=== PATIENT | female | born 1995 | race American Indian/Alaskan Native ===

== ENCOUNTER 2017-02-19 05:54 | Emergency (ER) | payer SELFPAY ==
[2017-02-19] MEDS ORDERED: NACL 0.9% 500 ML 500 ML IV ONE (06:24)
[2017-02-19] MEDS ORDERED: ZOFRAN IV ONE (06:24)
[2017-02-19] MEDS ORDERED: KETALAR IV ONE ×3 (06:24→07:05)
--- NOTE | 2017-02-19 06:25 | Emergency Department Report ---
Upper Extremity - HPI Chief Complaint: Extremity Injury, Upper Stated Complaint: LEFT SHOULDER DISLOCATION Time Seen by Provider: 02/19/17 06:09 Upper Extremity: Left Shoulder Occurred When: Today Mechanism: Other Severity: severe Symptoms: Yes Pain with Movement, Yes Deformity, Yes Limited Range of Movement, Yes Numbness, No Weakness, No Swelling, No Bruising/Ecchymosis, No Laceration or Abrasion Other History: This is a 21-year-old female. She is previously unknown to me. She is right-hand dominant. She reports a past history of multiple shoulder dislocations. She is brought to the hospital today by EMS for spontaneous left- sided shoulder dislocation. The patient reports that she went to sleep feeling normally, reports that she woke up, and the shoulder was dislocated. She has sharp pain, which increases with palpation and range of motion. It decreases with rest. She has no weakness. She describes nonspecific numbness to the left hand and forearm. ED Review of Systems ROS: Stated complaint: LEFT SHOULDER DISLOCATION Other details as noted in HPI Constitutional: denies: fever Eyes: denies: vision change ENT: denies: epistaxis Respiratory: denies: cough Cardiovascular: denies: chest pain Gastrointestinal: denies: abdominal pain Genitourinary: as per HPI Musculoskeletal: arthralgia, myalgia Skin: denies: lesions Neurological: denies: weakness Psychiatric: as per HPI ED Past Medical Hx - Past Medical History Previous Medical History?: No - Surgical History Past Surgical History?: No - Social History Smoking Status: Current Every Day Smoker Substance Use Type: None - Medications Home Medications: Home Medications Medication Instructions Recorded Confirmed Last Taken Type Ibuprofen [Motrin] 600 mg PO Q8H PRN #30 tablet 02/19/17 Unknown Rx Upper Extremity Exam - Exam General: Vital signs noted. No distress. Alert and acting appropriately. Head and Torso: No HEENT Abnormality, No Neck Tenderness, No Chest/Lungs Abnormality, No Abdominal Tenderness, No Back Tenderness Shoulder Exam: Yes Shoulder Tenderness, Yes Shoulder Deformity, No Clavicle Tenderness, No Normal Range of Motion in Shoulder, No AC Joint Tenderness Arm Exam: No Arm/Humerus Tenderness, No Arm Deformity Elbow: Yes Normal Range of Motion in Elbow, No Elbow Tenderness, No Elbow Deformity Forearm: No Forearm Tenderness, No Forearm Deformity, No Pain with Pronation, No Pain with Supination Wrist: Yes Normal ROM in Wrist, No Wrist Tenderness, No Wrist Deformity, No Snuffbox Tenderness, No Pain with Axial Thumb Compression Hand: Yes Normal ROM in Digit(s), No Hand Tenderness, No Hand Deformity, No Digit Tenderness, No Digit(s) Deformity, No Tendon Dysfunction CMS Exam: Yes Normal Distal Pulses, Yes Normal Capillary Refill, No Broken Skin , No Normal Distal Sensation ED Course Vital Signs 02/19/17 02/19/17 06:00 06:07 Temperature 98.4 F Pulse Rate 56 L Respiratory 20 20 Rate Blood Pressure 133/91 Blood Pressure 133/91 [Right] O2 Sat by Pulse 100 100 Oximetry - Reevaluation(s) Reevaluation #1: 02/19/17 07:39 differential diagnosis: Neuropraxia, shoulder dislocation Assessment and plan: 21-year-old female with history of multiple shoulder dislocations. She is afebrile with reassuring vital signs. She has appropriate strength and capillary refill. Sensation is intact bilaterally to the deltoid, median, radial, ulnar distribution, however she describes a nonspecific change in sensation prior to reduction of her dislocation. She reports that she is not . The patient was given 25 mg of ketamine, 25 mg of propofol for moderate sedation , she was sedated from 6:39 to 6:41, and her shoulder was easily reduced by myself with 1 attempt with no obvious complications, using an internal rotation technique on the scapula, scapular manipulation. After the procedure, sensation was equal bilaterally to the deltoid, median, radial, ulnar distribution. The patient was observed in the ER for an hour after completion of her sedation. The patient is awake and alert, and is noted to be texting on a cellular phone, and she is in no acute distress. The patient is instructed that she most likely has ligamentous injury, and she is counseled to keep the sling on, and to follow up with outpatient orthopedics. She will be discharged at this time. Return precautions are reviewed. - Moderate Sedation Indications: fracture/dislocation redu ASA Class: I Mallampati Airway Score: 1 Preparation: cardiac care nurse applied, pulse oximeter, capnometry used, supplemental O2 applied, suction/airway equipment at bedside, IV secured Ketamine: IV Ketamine Dose: 25 IV Propofol Dose (mgs): 25 Complications: none Patient Tolerated Procedure: well - Orthopedic Joint Reduction Joint #1 Consent Obtained: verbal consent, written consent, emergent situation Time Out Performed: Yes Side: left Joint Reduction Location: shoulder Analgesia: moderate sedation Shoulder Technique Used (if applicable): scapula manipulation Post-Reduction Neuro Exam: intact Post-Reduction Vascular Exam: intact Post Reduction X-Ray Obtained: Yes Post Reduction X-Ray Results: reduced Splint Applied: Yes Patient Tolerated Procedure: well ED Medical Decision Making - Lab Data Vital Signs 02/19/17 02/19/17 02/19/17 05:51 06:00 06:07 Temperature 98.4 F Temperature [ Intra-Procedure ] Temperature [ Pre-Procedure] Pulse Rate 61 54 L Pulse Rate [ Intra-Procedure ] Pulse Rate [Pre -Procedure] Respiratory 11 L 12 20 Rate Respiratory Rate [Intra- Procedure] Respiratory Rate [Pre- Procedure] Blood Pressure 133/91 133/91 Blood Pressure [Intra- Procedure] Blood Pressure [Pre-Procedure] Blood Pressure 133/91 [Right] O2 Sat by Pulse 100 100 100 Oximetry O2 Sat by Pulse Oximetry [ Intra-Procedure ] O2 Sat by Pulse Oximetry [Pre- Procedure] 02/19/17 02/19/17 02/19/17 06:10 06:21 06:30 Temperature Temperature [ Intra-Procedure ] Temperature [ Pre-Procedure] Pulse Rate 60 61 63 Pulse Rate [ Intra-Procedure ] Pulse Rate [Pre -Procedure] Respiratory 11 L 10 L 12 Rate Respiratory Rate [Intra- Procedure] Respiratory Rate [Pre- Procedure] Blood Pressure 133/91 143/94 150/97 Blood Pressure [Intra- Procedure] Blood Pressure [Pre-Procedure] Blood Pressure [Right] O2 Sat by Pulse 99 100 100 Oximetry O2 Sat by Pulse Oximetry [ Intra-Procedure ] O2 Sat by Pulse Oximetry [Pre- Procedure] 02/19/17 02/19/17 02/19/17 06:39 06:40 06:41 Temperature Temperature [ 98.4 F Intra-Procedure ] Temperature [ 98.4 F 98.4 F Pre-Procedure] Pulse Rate 57 L Pulse Rate [ 82 Intra-Procedure ] Pulse Rate [Pre 82 71 -Procedure] Respiratory 21 Rate Respiratory 18 Rate [Intra- Procedure] Respiratory 18 14 Rate [Pre- Procedure] Blood Pressure 130/84 Blood Pressure 150/97 [Intra- Procedure] Blood Pressure 150/97 130/84 [Pre-Procedure] Blood Pressure [Right] O2 Sat by Pulse 100 Oximetry O2 Sat by Pulse 100 Oximetry [ Intra-Procedure ] O2 Sat by Pulse 100 100 Oximetry [Pre- Procedure] 02/19/17 02/19/17 02/19/17 06:51 06:58 07:00 Temperature Temperature [ Intra-Procedure ] Temperature [ Pre-Procedure] Pulse Rate 52 L 89 55 L Pulse Rate [ Intra-Procedure ] Pulse Rate [Pre -Procedure] Respiratory 17 22 15 Rate Respiratory Rate [Intra- Procedure] Respiratory Rate [Pre- Procedure] Blood Pressure 136/87 134/83 Blood Pressure [Intra- Procedure] Blood Pressure [Pre-Procedure] Blood Pressure [Right] O2 Sat by Pulse 100 100 Oximetry O2 Sat by Pulse Oximetry [ Intra-Procedure ] O2 Sat by Pulse Oximetry [Pre- Procedure] 02/19/17 07:11 Temperature Temperature [ Intra-Procedure ] Temperature [ Pre-Procedure] Pulse Rate 50 L Pulse Rate [ Intra-Procedure ] Pulse Rate [Pre -Procedure] Respiratory 11 L Rate Respiratory Rate [Intra- Procedure] Respiratory Rate [Pre- Procedure] Blood Pressure 134/83 Blood Pressure [Intra- Procedure] Blood Pressure [Pre-Procedure] Blood Pressure [Right] O2 Sat by Pulse 100 Oximetry O2 Sat by Pulse Oximetry [ Intra-Procedure ] O2 Sat by Pulse Oximetry [Pre- Procedure] - Radiology Data Radiology results: report reviewed, image reviewed interpreted by me: initial x ray shows left sided shoulder dislocation repeat x ray shows shoulder reduction successful Critical care attestation.: If time is entered above; I have spent that time in minutes in the direct care of this critically ill patient, excluding procedure time. ED Disposition Clinical Impression: Recurrent dislocation, left shoulder Disposition: DC-01 TO HOME OR SELFCARE Is pt being admited?: No Does the pt Need Aspirin: No Condition: Stable Instructions: Shoulder Dislocation (ED) Additional Instructions: Rest and avoid heavy lifting. Avoid strenuous physical activity. Do not use the left upper extremity for any activities until cleared by a primary care doctor or orthopedist. you most likely have ligamentous/soft tissue injuries to the left shoulder. This should be followed up by an orthopedic surgeon. Follow up with Dr. Posada listed orthopedic surgeon, for any of your private orthopedic surgeons within the next week. Do not remove the sling until cleared by an orthopedic surgeon. Return to the ER right away with new pain, worsening pain, migration of pain, weakness, numbness, confusion, inability to tolerate liquid feeds. Prescriptions: Ibuprofen [Motrin] 600 mg PO Q8H PRN #30 tablet PRN Reason: Pain Referrals: PRIMARY CAREMD [Primary Care Provider] - 3-5 Days HANNAH POSADA MD [Staff Physician] - 3-5 Days Forms: Work/School Release Form(ED)
[2017-02-19] MEDS ORDERED: KETALAR ONE (06:26)
[2017-02-19] MEDS: DIPRIVAN 10 MG/ML IV ONE ×2 (06:49→07:03)
[2017-02-19] MEDS ORDERED: SODIUM CHLORIDE FLUSH SYRINGE 10 ML IV PRN (07:00)
[2017-02-19] MEDS ORDERED: DIPRIVAN 10 MG/ML IV ONE (07:05)
[2017-02-19 07:53] VITALS: BP 124/69
--- NOTE | 2017-02-19 09:34 | XRay Report ---
LEFT SHOULDER, ONE VIEW History: Left shoulder pain. Findings: No comparison. An anterior, inferior dislocation at the left glenohumeral joint is identified. The remainder of the left shoulder is within normal limits. Impression: Anterior, inferior dislocation.
--- NOTE | 2017-02-19 09:36 | XRay Report ---
LEFT SHOULDER, ONE VIEW History: Dislocation, pain, postreduction film. Findings: The anterior, inferior dislocation of the left shoulder has been reduced since earlier today at 0559 hours. There is subtle deformity of the lateral humeral head which may be secondary to rotation or a small Hill-Sachs deformity. If further evaluation is needed, CT or MRI would provide the most information. Impression: Anatomic alignment at the left shoulder.
== END 2017-02-19 07:53 | disposition home or self-care (01) ==
LOC: ED 05:54
DX: M24.412 Recurrent dislocation, left shoulder (principal); F17.210 Nicotine dependence, cigarettes, uncomplicated
CPT/HCPCS: 23650; 73020; 96374; 99285; J2405; J2704; J7040